=== PATIENT | male | born 1955 | race African-American/Black ===

== ENCOUNTER → 2022-07-22 | Day surgery (SDC) | payer MEDICARE, MEDICAID ==
[~2022-07-22] VITALS: Ht 167.6 cm; Wt 90.7 kg
[~2022-07-22] MED LIST: AMLO10TA80 PO; ATOR10TA69 PO; BUPIVACAINE HCL/PF 0.5% (5MG/ML) 10ML ONE; DEXAMETHASONE 4MG/ML 1ML VIAL ONE; ERGO1250 PO; FENTANYL CITRATE/PF 50MCG/ML 2ML VIAL ONE; GLYCOPYRROLATE 0.2 MG/ML 2ML VIAL ONE; HYDR25TA PO; HYDROCODONE/ACETAMINOPHEN 5/325MG TABLET PO PRN; LABETALOL 5MG/ML SYR 20 MG/4 ML SYRINGE IV PRN; LACTATED RINGERS 1,000 ML IV SCH; MEPERIDINE HCL/PF 25MG/ML CPJ IV PRN; MIDAZOLAM HCL 2 MG/2 ML VIAL ONE; NEOSTIGMINE METHYLSULFATE 1MG/ML 10 ML VIAL ONE; NON FORMULARY PATIENT HOME MED XX SCH; ONDANSETRON HCL 4MG/2ML INJ IV PRN; PROPOFOL 200MG/20ML VIAL IV ONE; ROCURONIUM BROMIDE 10MG/ML VIAL 5ML IV ONE
[2022-07-22] MEDS: HYDROMORPHONE HCL/PF 2MG/ML CPJ IV PRN ×2 (11:23→11:31)
[2022-07-22 14:19] VITALS: BP 176/106
== END | disposition home or self-care (01) ==
LOC: OR 07:31
PROVIDERS: ATTEND Surgery
DX: K40.90 Unilateral inguinal hernia, without obstruction or gangrene, not specified as recurrent (principal); I10 Essential (primary) hypertension; E11.9 Type 2 diabetes mellitus without complications; Z79.84 Long term (current) use of oral hypoglycemic drugs; Z79.899 Other long term (current) drug therapy; Z98.890 Other specified postprocedural states; Z20.822 Contact with and (suspected) exposure to COVID-19
CPT/HCPCS: 49525; 87426; C1781; C9803; J1100; J1170; J2250; J2704; J2710; J3010; J3490; J7030

== ENCOUNTER 2023-08-16 23:09 | Emergency (ER) | payer MEDICARE ==
[~2023-08-16] VITALS: Ht 175.3 cm; Wt 88.5 kg
[~2023-08-16 23:09] MED LIST changes: -BUPIVACAINE HCL/PF 0.5% (5MG/ML) 10ML ONE; -DEXAMETHASONE 4MG/ML 1ML VIAL ONE; -FENTANYL CITRATE/PF 50MCG/ML 2ML VIAL ONE; -GLYCOPYRROLATE 0.2 MG/ML 2ML VIAL ONE; -HYDROCODONE/ACETAMINOPHEN 5/325MG TABLET PO PRN; -LABETALOL 5MG/ML SYR 20 MG/4 ML SYRINGE IV PRN; -LACTATED RINGERS 1,000 ML IV SCH; -MEPERIDINE HCL/PF 25MG/ML CPJ IV PRN; -MIDAZOLAM HCL 2 MG/2 ML VIAL ONE; -NEOSTIGMINE METHYLSULFATE 1MG/ML 10 ML VIAL ONE; -NON FORMULARY PATIENT HOME MED XX SCH; -ONDANSETRON HCL 4MG/2ML INJ IV PRN; -PROPOFOL 200MG/20ML VIAL IV ONE; -ROCURONIUM BROMIDE 10MG/ML VIAL 5ML IV ONE
[2023-08-16 23:13] VITALS: BP 138/87; PULSE 70; RESP 16; TEMP 98.3; O2SAT 98
== END 2023-08-17 02:04 | disposition home or self-care (01) ==
LOC: ER 23:09
DX: S09.90XA Unspecified injury of head, initial encounter (principal); F10.129 Alcohol abuse with intoxication, unspecified; F12.90 Cannabis use, unspecified, uncomplicated; I10 Essential (primary) hypertension; W18.30XA Fall on same level, unspecified, initial encounter; Y93.89 Activity, other specified; Y92.89 Other specified places as the place of occurrence of the external cause; Y99.8 Other external cause status
CPT/HCPCS: 99283

== ENCOUNTER 2024-04-30 15:53 | Emergency (ER) | payer MEDICARE, MEDICAID ==
[~2024-04-30] VITALS: Ht 175.3 cm; Wt 91.0 kg
[2024-04-30 16:18] VITALS: BP 178/103; O2SAT 97
[2024-04-30] MEDS ORDERED: ACETAMINOPHEN 500MG TABLET PO ONE (17:30)
[2024-04-30 17:42] VITALS: PULSE 89; RESP 18
[2024-04-30 18:24] VITALS: TEMP 98.1
[2024-04-30] MEDS: ACETAMINOPHEN 500MG TABLET PO NR (18:24)
== END 2024-04-30 19:40 | disposition home or self-care (01) ==
LOC: ER 15:53
DX: S80.02XA Contusion of left knee, initial encounter (principal); S80.01XA Contusion of right knee, initial encounter; I10 Essential (primary) hypertension; F12.10 Cannabis abuse, uncomplicated; W18.39XA Other fall on same level, initial encounter; Y93.89 Activity, other specified; Y92.89 Other specified places as the place of occurrence of the external cause; Y99.8 Other external cause status
CPT/HCPCS: 73564; 99284